=== PATIENT | female | born 1985 | race Caucasian/White ===

== ENCOUNTER 2017-04-25 12:36 | Emergency (ER) | payer BC ==
[2017-04-25 13:54] VITALS: BP 124/86
--- NOTE | 2017-04-25 14:13 | ED ---
Throat Pain/Nasal Congestion - HPI Summary HPI Summary: Patient presents to the with CC of feelings of something "stuck" in her throat and difficulty breathing x 2 weeks. Denies chest pain or pressure. She denies getting a piece of food stuck, but states it feels like that. She also notes to SOB. Hx of anxiety, but states this feels different. Denies cardiac history. D/t symptoms and feelings of SOB - will recommend she go to the . prior to discharge, neck xray obtained with no acute findings. Chest xray negative. Denies drooling. - History of Current Complaint Chief Complaint: UCGeneralIllness Time Seen by Provider: 04/25/17 13:57 Hx Obtained From: Patient Onset/Duration: Sudden Onset Severity: Moderate Associated Signs And Symptoms: Positive: Dysphagia, FB Sensation - Epiglottits Risk Factors Epiglottis Risk Factors: Negative - Allergies/Home Medications Allergies/Adverse Reactions: Allergies Allergy/AdvReac Type Severity Reaction Status Date / Time Aspirin Allergy Shortness Verified 04/25/17 13:47 of Breath amoxicillin Allergy Rash Uncoded 04/25/17 13:47 PMH/Surg Hx/FS Hx/Imm Hx Previously Healthy: Yes Endocrine/Hematology History: Reports: Hx Thyroid Disease Denies: Hx Diabetes Cardiovascular History: Denies: Hx Congestive Heart Failure, Hx Hypertension Respiratory History: Reports: Hx Asthma GI History: Denies: Hx Irritable Bowel History: Denies: Hx Renal Disease Musculoskeletal History: Reports: Hx Scoliosis - Surgical History Surgery Procedure, Year, and Place: wisdom teeth - Immunization History Date of Tetanus Vaccine: <5 yrs Date of Influenza Vaccine: None Hx Pertussis Vaccination: No Immunizations Up to Date: Unable to Obtain/Confirm Infectious Disease History: No Infectious Disease History: Denies: Hx Clostridium Difficile, Hx Hepatitis, Hx Human Immunodeficiency Virus (HIV), Hx of Known/Suspected MRSA, Hx Shingles, Hx Tuberculosis, Hx Known/ Suspected VRE, Hx Known/Suspected VRSA, History Other Infectious Disease, Traveled Outside the [place] in Last 30 Days - Family History Known Family History: Positive: None - Social History Occupation: Employed Full-time Lives: With Family Alcohol Use: Rare Hx Substance Use: No Substance Use Type: Reports: None Hx Tobacco Use: No Smoking Status (MU): Never Smoked Tobacco Review of Systems Constitutional: Negative Negative: Fever, Chills, Fatigue Eyes: Negative Positive: Sore Throat. Negative: Epistaxis, Dental Pain Negative: Palpitations, Chest Pain Positive: Shortness Of Breath. Negative: Cough Negative: Abdominal Pain, Vomiting, Diarrhea Positive: no symptoms reported, see HPI Musculoskeletal: Negative Neurological: Negative Psychological: Other All Other Systems Reviewed And Are Negative: Yes Physical Exam Triage Information Reviewed: Yes Vital Signs On Initial Exam: Initial Vitals Temp Pulse Resp BP Pulse Ox 99.3 F 80 18 124/86 100 04/25/17 13:48 04/25/17 13:48 04/25/17 13:48 04/25/17 13:48 04/25/17 13:48 Vital Signs Reviewed: Yes Appearance: Positive: Well-Appearing, Well-Nourished Skin: Positive: Warm, Skin Color Reflects Adequate Perfusion Head/Face: Positive: Normal Head/Face Inspection Eyes: Positive: EOMI, ARABELLA, Conjunctiva Clear ENT: Positive: Pharynx normal, TMs normal. Negative: Pharyngeal erythema, Tonsillar swelling, Tonsillar exudate, Trismus, Muffled/hoarse voice, Dental tenderness Neck: Positive: Tenderness @ - anterior neck Respiratory/Lung Sounds: Positive: Clear to Auscultation, Breath Sounds Present Cardiovascular: Positive: Normal, RRR, Pulses are Symmetrical in both Upper and Lower Extremities Musculoskeletal: Positive: Normal, Strength/ROM Intact Neurological: Positive: Sensory/Motor Intact, Alert, Oriented to Person Place, Time AVPU Assessment: Alert Diagnostics - Vital Signs Vital Signs Temp Pulse Resp BP Pulse Ox 04/25/17 13:48 99.3 F 80 18 124/86 100 - Laboratory Lab Statement: Any lab studies that have been ordered have been reviewed, and results considered in the medical decision making process. EENT Course/Dx - Course Course Of Treatment: Patient evaluated for something "stuck" in her throat. Denies chest pain or pressure. She denies getting a piece of food stuck, but states it feels like that. She also notes to SOB. Hx of anxiety, but states this feels different. Denies cardiac history. D/t symptoms and feelings of SOB - will recommend she go to the . prior to discharge, neck xray obtained with no acute findings. Chest xray negative. Denies drooling. She agrees to go by private car. - Differential Diagnoses Differential Diagnoses: Other - FB in throat, anxiety, chest pain - Diagnoses Provider Diagnoses: Sensation of foreign body in esophagus Discharge - Discharge Plan Condition: Stable Disposition: HOME Patient Education Materials: Dyspnea (ED), Foreign Body Ingestion (ED) Referrals: Arpit ABREU,Alfred Valencia [Primary Care Provider] - Additional Instructions: I feel you need further evaluation through the Emergency Department and recommend you go there immediately.
--- NOTE | 2017-04-25 14:32 | RAD ---
HISTORY: Shortness of breath COMPARISONS: July 25, 2014 VIEWS: 4: Frontal dual-energy and lateral views of the chest. FINDINGS: CARDIOMEDIASTINAL SILHOUETTE: The cardiomediastinal silhouette is normal. JASON: The jason are normal. PLEURA: The costophrenic angles are sharp. No pleural abnormalities are noted. LUNG PARENCHYMA: The lungs are clear. ABDOMEN: The upper abdomen is clear. There is no subphrenic gas. BONES AND SOFT TISSUES: No bone or soft tissue abnormalities are noted. OTHER: None. IMPRESSION: NO ACTIVE CARDIOPULMONARY DISEASE.
--- NOTE | 2017-04-25 15:14 | RAD ---
HISTORY: Foreign body sensation COMPARISONS: None VIEWS: 2, frontal and lateral views of the neck FINDINGS: The neck is visualized from the skull base. T1. Osseous structures are normal. The prevertebral soft tissue is normal. There is a continuous air column from the pharynx to the trachea. The lung apices are clear. The skull base is unremarkable. There is no radiographic foreign body. IMPRESSION: UNREMARKABLE SOFT TISSUES OF THE NECK
== END 2017-04-25 15:31 | disposition home or self-care (01) ==
LOC: UCEAST 12:36
DX: R13.10 Dysphagia, unspecified (principal); R06.02 Shortness of breath; E07.9 Disorder of thyroid, unspecified; J45.909 Unspecified asthma, uncomplicated; F41.9 Anxiety disorder, unspecified; Z88.6 Allergy status to analgesic agent; Z88.1 Allergy status to other antibiotic agents
CPT/HCPCS: 70360; 71020; 93005; 99212; G0463

== ENCOUNTER 2017-04-25 15:48 | Emergency (ER) | payer BC ==
[2017-04-25 18:40] LABS: Hematocrit 43 % (35-47); Hemoglobin 14.2 g/dl (12.0-16.0); Mean Corpuscular HGB Conc 33 g/dl (31-36); Mean Corpuscular Hemoglobin 30 pg (27-31); Mean Corpuscular Volume 90 fL (80-97); Mean Platelet Volume 11 um3 (7.4-10.4); Red Blood Count 4.78 10^6/ul (4.0-5.4); Red Cell Distribution Width 14 % (10.5-15); White Blood Count 9.2 10^3/ul (3.5-10.8)
[2017-04-25 19:30] LABS: Albumin 4.2 g/dL (3.2-5.2); BUN/Creatinine Ratio 17.5 (8-20); Calcium 9.8 mg/dL (8.6-10.3); EGFR African American 108.3 (>60); EGFR Non-African American 84.2 (>60); Globulin 3.5 g/dL (2-4); Potassium 3.7 mmol/L (3.5-5.0); Total Bilirubin 0.8 mg/dL (0.2-1.0); Total Protein 7.7 g/dL (6.4-8.9)
[2017-04-25] MEDS ORDERED: Iohexol 300* (CONTRAST) 10 ML SDV IV ONE (19:37)
--- NOTE | 2017-04-25 20:50 | RAD ---
INDICATION: Difficulty swallowing pills like something is stuck. COMPARISON: Correlation is made with a prior x-ray of the soft tissue of the neck from April 25, 2017. TECHNIQUE: A CT scan of the neck was performed with intravenous contrast following intravenous injection of 50 ml of Omnipaque 300 nonionic contrast. Contiguous axial sections were obtained from the skull base through the lung apices. Images were reconstructed in the coronal and sagittal planes. FINDINGS: The airway is patent. The epiglottis and aryepiglottic folds appear within normal limits. No retropharyngeal soft tissue swelling is noted. No radiopaque foreign body is seen. No significant enlarged nodes are seen. The parotid and submandibular glands appear to be within normal limits. The thyroid gland appears normal. The lung apices appear clear. The visualized portion of the paranasal sinuses and mastoid air cells appear clear. No significant focal osseous abnormality is seen. IMPRESSION: NEGATIVE EXAM.
--- NOTE | 2017-04-25 20:58 | ED ---
Throat Pain/Nasal Congestion - HPI Summary HPI Summary: 32F presents with foreign body sensation for two weeks. She states she feels like something is stuck in her throat but denies that anything is present there. She states at times she develops SOB from it. She has history of hypothyroidism that has remained stable. Her most recent labs were fine. She denies any acid reflux. She denies any sore throat. She denies any dental pain. She denies any fever. She denies any lymph node swelling. She denies any chest pain. - History of Current Complaint Chief Complaint: EDForeignBodyEsophag Time Seen by Provider: 04/25/17 17:39 - Allergies/Home Medications Allergies/Adverse Reactions: Allergies Allergy/AdvReac Type Severity Reaction Status Date / Time Aspirin Allergy Shortness Verified 04/25/17 13:47 of Breath amoxicillin Allergy Rash Uncoded 04/25/17 13:47 PMH/Surg Hx/FS Hx/Imm Hx Endocrine/Hematology History: Reports: Hx Thyroid Disease Denies: Hx Diabetes Cardiovascular History: Denies: Hx Congestive Heart Failure, Hx Hypertension Respiratory History: Reports: Hx Asthma GI History: Denies: Hx Irritable Bowel History: Denies: Hx Renal Disease Musculoskeletal History: Reports: Hx Scoliosis - Surgical History Surgery Procedure, Year, and Place: wisdom teeth - Immunization History Date of Tetanus Vaccine: 7-8 years ago Date of Influenza Vaccine: 2013 Infectious Disease History: No Infectious Disease History: Denies: Hx Clostridium Difficile, Hx Hepatitis, Hx Human Immunodeficiency Virus (HIV), Hx of Known/Suspected MRSA, Hx Shingles, Hx Tuberculosis, Hx Known/ Suspected VRE, Hx Known/Suspected VRSA, History Other Infectious Disease, Traveled Outside the [place] in Last 30 Days - Family History Known Family History: Positive: None - Social History Alcohol Use: Rare Substance Use Type: Reports: None Hx Tobacco Use: No Smoking Status (MU): Never Smoked Tobacco Review of Systems Negative: Fever Positive: Other - foreign body sensation in throat Negative: Chest Pain Positive: Shortness Of Breath All Other Systems Reviewed And Are Negative: Yes Physical Exam Triage Information Reviewed: Yes Vital Signs On Initial Exam: Initial Vitals Temp Pulse Resp BP Pulse Ox 97.9 F 66 17 115/90 97 04/25/17 15:51 04/25/17 15:51 04/25/17 15:51 04/25/17 15:51 04/25/17 15:51 Vital Signs Reviewed: Yes Appearance: Positive: Well-Appearing Skin: Positive: Warm, Dry Head/Face: Positive: Normal Head/Face Inspection Eyes: Positive: Normal, EOMI, ARABELLA, Conjunctiva Clear ENT: Positive: Normal ENT inspection, Pharynx normal, TMs normal Dental: Positive: Other - no submandibular tenderness. Negative: Percussion Tenderness @ Neck: Positive: Supple, Nontender, No Lymphadenopathy, Other: - no thyroid mass felt Respiratory/Lung Sounds: Positive: Clear to Auscultation, Breath Sounds Present Cardiovascular: Positive: Normal, RRR Abdomen Description: Positive: Nontender, Soft Bowel Sounds: Positive: Present - Jennifer Coma Scale Coma Scale Total: 15 Diagnostics - Vital Signs Vital Signs Temp Pulse Resp BP Pulse Ox 04/25/17 15:51 97.9 F 66 17 115/90 97 - Laboratory Lab Results: Lab Results 04/25/17 04/25/17 Range/Units 18:20 18:20 WBC 9.2 (3.5-10.8) 10^3/ul RBC 4.78 (4.0-5.4) 10^6/ul Hgb 14.2 (12.0-16.0) g/dl Hct 43 (35-47) % MCV 90 (80-97) fL MCH 30 (27-31) pg MCHC 33 (31-36) g/dl RDW 14 (10.5-15) % Plt Count 209 (150-450) 10^3/ul MPV 11 H (7.4-10.4) um3 Neut % (Auto) 76.5 (38-83) % Lymph % (Auto) 17.4 L (25-47) % Carbon % (Auto) 5.0 (1-9) % Eos % (Auto) 0.5 (0-6) % Baso % (Auto) 0.6 (0-2) % Absolute Neuts (auto) 7.1 (1.5-7.7) 10^3/ul Absolute Lymphs (auto) 1.6 (1.0-4.8) 10^3/ul Absolute Monos (auto) 0.5 (0-0.8) 10^3/ul Absolute Eos (auto) 0 (0-0.6) 10^3/ul Absolute Basos (auto) 0.1 (0-0.2) 10^3/ul Absolute Nucleated RBC 0.01 10^3/ul Nucleated RBC % 0.1 Sodium 137 (133-145) mmol/L Potassium 3.7 (3.5-5.0) mmol/L Chloride 105 (101-111) mmol/L Carbon Dioxide 23 (22-32) mmol/L Anion Gap 9 (2-11) mmol/L BUN 14 (6-24) mg/dL Creatinine 0.80 (0.51-0.95) mg/dL Est GFR ( Amer) 108.3 (>60) Est GFR (Non-Af Amer) 84.2 (>60) BUN/Creatinine Ratio 17.5 (8-20) Glucose 120 H (70-100) mg/dL Calcium 9.8 (8.6-10.3) mg/dL Total Bilirubin 0.80 (0.2-1.0) mg/dL AST 21 (13-39) U/L ALT 19 (7-52) U/L Alkaline Phosphatase 54 (34-104) U/L Total Protein 7.7 (6.4-8.9) g/dL Albumin 4.2 (3.2-5.2) g/dL Globulin 3.5 (2-4) g/dL Albumin/Globulin Ratio 1.2 (1-3) Result Diagrams: 04/25/17 18:20 04/25/17 18:20 Lab Statement: Any lab studies that have been ordered have been reviewed, and results considered in the medical decision making process. EENT Course/Dx - Course Course Of Treatment: 32F presents with foreign body sensation for two weeks. She states she feels like something is stuck in her throat but denies that anything is present there. She states at times she develops SOB from it. She has history of hypothyroidism that has remained stable. Her most recent labs were fine. She denies any acid reflux. She denies any sore throat. She denies any dental pain. She denies any fever. She denies any lymph node swelling. She denies any chest pain. no palpable thyroid. got CT neck which was normal. will have follow up with ENT for continued management. patient understands and agrees with plan. - Differential Diagnoses Differential Diagnoses: Edmund's Angina, Penetrating Injury, Other - thyroiditis , gerd - Diagnoses Provider Diagnoses: Sensation of foreign body in throat Discharge - Discharge Plan Condition: Good Disposition: HOME Referrals: Arpit ABREU,Alfred Valencia [Primary Care Provider] - Cesar Aguilera MD [Medical Doctor] - Additional Instructions: Follow up with ENT Return to ED if develop any new or worsening symptoms
[2017-04-25 21:39] VITALS: BP 112/68
== END 2017-04-25 21:40 | disposition home or self-care (01) ==
LOC: ED 15:48
DX: R06.02 Shortness of breath (principal); R09.89 Other specified symptoms and signs involving the circulatory and respiratory systems
CPT/HCPCS: 36415; 70491; 80053; 85025; 99282; Q9967